=== PATIENT | male | born 1970 | race Caucasian/White ===

== ENCOUNTER → 2019-02-04 | Outpatient (CLI) | payer BC | END | disposition home or self-care (01) | LOC: CARD 01-13 07:30 | DX: Z95.2 Presence of prosthetic heart valve (principal) ==

== ENCOUNTER → 2021-05-18 | Outpatient (CLI) | payer BC | END | disposition home or self-care (01) | LOC: COVID19 15:15 | PROVIDERS: ATTEND Internal Medicine | DX: U07.1 COVID-19 (principal) ==

== ENCOUNTER → 2023-09-02 | Outpatient (CLI) | payer BC | END | disposition home or self-care (01) | LOC: CARD 09:16 | PROVIDERS: ATTEND Internal Medicine Cardiovascular Disease | DX: I08.8 Other rheumatic multiple valve diseases (principal); Z95.2 Presence of prosthetic heart valve; I49.3 Ventricular premature depolarization ==

== ENCOUNTER → 2023-09-23 | Outpatient (CLI) | payer BC ==
[~2023-09-23] MED LIST: COZAAR25 M1 PO; METOPROLOL SUCC50 M1 PO; Regadenoson 0.4 MG/5 ML SYR IV ONE; WARFARIN SODIUM3 MG PO
== END | disposition home or self-care (01) ==
LOC: CARD 01:16
PROVIDERS: ATTEND Internal Medicine Cardiovascular Disease
DX: I49.3 Ventricular premature depolarization (principal); R94.31 Abnormal electrocardiogram [ECG] [EKG]; I10 Essential (primary) hypertension

== ENCOUNTER → 2024-11-24 | Outpatient (CLI) | payer OTHER ==
[~2024-11-24] MED LIST changes: -Regadenoson 0.4 MG/5 ML SYR IV ONE
[2024-11-24 11:48] LABS: MEAN CELL VOLUME 97.2 fl (80.0-94.0); MEAN CORPUSCULAR HGB 31.0 pg (27.0-31.0); MEAN PLATELET VOLUME 10.9 fl (9.6-12.3); NUCLEATED RED BLOOD CELL 0.0 % (0.0-0.0); NUCLEATED RED BLOOD CELL 0.0 10*3/uL (0.0-0.0); PLATELET COUNT AUTOMATED 292 10*3/uL (130-400); RED CELL DISTRI WIDTH 13.6 % (0-14.5); RETICULOCYTE % 2.07 % (0.50-2.50)
[2024-11-24 11:54] LABS: BILIRUBIN Negative (Negative); BLOOD Negative (Negative); CLARITY Clear (Clear); COLOR Yellow (Yellow); KETONE Negative (Negative); LEUKO ESTERASE Negative (Negative); NITRITE Negative (Negative); PH 5.0 (4.5-8.0); SPECIFIC GRAVITY 1.015 (1.001-1.030); UROBILINOGEN 0.2 E.U./dl (0.0-1.0)
[2024-11-24 12:01] LABS: BACTERIA TRACE; MUCOUS TRACE; WBC 0-2 wbc/hpf (0-5)
[2024-11-24 12:14] LABS: BUN 15 mg/dl (9-23); GAMMA GLUTAMYL TRANSFERASE 35 U/L (0-73); LDL CHOLESTEROL 120 mg/dL (9-159); SGPT/ALT 19 U/L (5-49); VITAMIN D, 25-HYDROXY 31.1 ng/mL (30-100)
[2024-11-24 12:15] LABS: PLATELET SUFFICIENCY NORMAL (NORMAL)
[2024-11-25 12:07] LABS: ANTI-DSDNA ANTIBODIES <1 IU/mL (0-9)
[2024-11-25 16:08] LABS: A/G RATIO 1.0 (0.7-1.7); BETA GLOBULIN 1.5 g/dL (0.7-1.3); GLOBULIN, TOTAL 3.9 g/dL (2.2-3.9)
== END | disposition home or self-care (01) ==
LOC: LAB 11:15
PROVIDERS: ATTEND Family Medicine
DX: E78.5 Hyperlipidemia, unspecified (principal); E55.9 Vitamin D deficiency, unspecified; R53.83 Other fatigue; R79.89 Other specified abnormal findings of blood chemistry; R06.02 Shortness of breath; Z98.890 Other specified postprocedural states

== ENCOUNTER → 2024-12-17 | Outpatient (CLI) | payer OTHER ==
[~2024-12-17] MED LIST changes: +IOHEXOL 300 MG/ML 100 ML VIAL IV ONE
== END | disposition home or self-care (01) ==
LOC: CT 12-14 11:00
PROVIDERS: ATTEND Family Medicine
DX: R22.1 Localized swelling, mass and lump, neck (principal); G93.89 Other specified disorders of brain; R51.9 Headache, unspecified; Z86.73 Personal history of transient ischemic attack (TIA), and cerebral infarction without residual deficits